=== PATIENT | male | born 1965 | race African-American/Black ===

== ENCOUNTER 2017-04-21 14:46 | Inpatient (IN) | payer MEDICAID ==
[~2017-04-21] VITALS: Ht 182.9 cm; Wt 110.9 kg
[~2017-04-21 14:46] MED LIST: AMLO10TA55 PO; METO50TA5 PO; WARF5TAB6 PO
[2017-04-21] MEDS ORDERED: FURO40 PO (15:04)
[2017-04-21] MEDS ORDERED: METF500T4 PO (15:04)
[2017-04-21] MEDS ORDERED: HYDR25TA PO (15:04)
[2017-04-21] MEDS ORDERED: CARV25 PO (15:04)
[2017-04-21 15:08] LABS: GLUCOSE,POINT OF CARE 159 MG/DL (70-110)
[2017-04-21] MEDS ORDERED: MECLIZINE HCL 25 MG TABLET PO ONE (15:30)
[2017-04-21] MEDS ORDERED: SODIUM CHLORIDE 0.9% 500 ML IV ONE (15:30)
[2017-04-21] MEDS: ACETAMINOPHEN 500 MG TABLET PO ONE ×2 (16:20→16:35)
[2017-04-21] MEDS: ONDANSETRON HCL 4 MG/2 ML VIAL IVP ONE ×2 (16:20→16:35)
[2017-04-21 16:44] LABS: BASOPHILS % (AUTO) 0.4 % (0.0-2.0); HEMATOCRIT 37.4 % (41-53); HEMOGLOBIN 12.6 g/dL (13.5-17.5); LYMPHOCYTES # (AUTO) 2.2 K/uL (1.0-4.8); LYMPHOCYTES % (AUTO) 46.3 % (22.0-44.0); MEAN CORPUSCULAR HEMOGLOBIN 30.9 pg (26.0-34.0); MEAN CORPUSCULAR HGB CONC 33.8 G/dL (31.0-37.0); MEAN CORPUSCULAR VOLUME 91 fL (80-100); MONOCYTES # (AUTO) 0.4 K/uL (0.1-1.0); NEUTROPHILS # (AUTO) 1.9 K/uL (1.8-7.7); NEUTROPHILS % (AUTO) 41.3 % (40.0-70.0); PLATELET COUNT (AUTO) 173 K/uL (150-450); RED BLOOD CELL COUNT(AUTO) 4.09 MIL/uL (4.50-5.90); RED CELL DISTRIBUTION WIDTH 14.8 % (11.5-14.5); WHITE BLOOD COUNT (AUTO) 4.7 K/uL (4.5-11.0)
[2017-04-21 17:01] LABS: INR 1.3 (0.9-1.1); PROTHROMBIN TIME 13.4 SEC (9.4-11.6)
[2017-04-21 17:02] LABS: CALCIUM, TOTAL 8.7 mg/dL (8.8-10.5); CREATININE 2.02 mg/dL (0.60-1.30); POTASSIUM 3.6 mmol/L (3.5-5.1)
[2017-04-21 17:09] LABS: BILIRUBIN,TOTAL 0.5 mg/dL (0.1-1.0); TOTAL PROTEIN, SERUM 7.5 g/dL (6.4-8.2)
[2017-04-21] MEDS ORDERED: 0.9% SODIUM CHLORIDE 10 ML SYRINGE IVP PRN (17:45)
[2017-04-21] MEDS ORDERED: ACETAMINOPHEN 325 MG TABLET PO PRN (17:45)
[2017-04-21] MEDS ORDERED: ONDANSETRON HCL 4 MG/2 ML VIAL IVP PRN (17:45)
[2017-04-21] MEDS ORDERED: WARFARIN SODIUM 5 MG TABLET PO SCH (20:15)
[2017-04-21 20:16] VITALS: BP 102/75
[2017-04-21] MEDS: WARFARIN SODIUM 5 MG TABLET PO SCH (20:30)
[2017-04-21 23:51] VITALS: BP 114/78
[2017-04-22] MEDS: METOPROLOL TARTRATE 50 MG TABLET PO SCH ×3 (00:35→20:41)
[2017-04-22 05:04] VITALS: BP 117/66
[2017-04-22 05:56] LABS: LYMPHOCYTES # (AUTO) 2.1 K/uL (1.0-4.8); NEUTROPHILS # (AUTO) 1.2 K/uL (1.8-7.7)
[2017-04-22 06:01] LABS: BASOPHILS % (AUTO) 0.6 % (0.0-2.0); EOSINOPHILS % (AUTO) 3.8 % (1.0-6.0); HEMATOCRIT 38.5 % (41-53); HEMOGLOBIN 13.2 g/dL (13.5-17.5); LYMPHOCYTES % (AUTO) 56.3 % (22.0-44.0); MEAN CORPUSCULAR HEMOGLOBIN 31.6 pg (26.0-34.0); MEAN CORPUSCULAR HGB CONC 34.3 G/dL (31.0-37.0); MEAN CORPUSCULAR VOLUME 92 fL (80-100); MONOCYTES # (AUTO) 0.3 K/uL (0.1-1.0); MONOCYTES % (AUTO) 8.5 % (2.0-9.0); NEUTROPHILS % (AUTO) 30.8 % (40.0-70.0); PLATELET COUNT (AUTO) 171 K/uL (150-450); RED BLOOD CELL COUNT(AUTO) 4.17 MIL/uL (4.50-5.90); RED CELL DISTRIBUTION WIDTH 15.1 % (11.5-14.5); WHITE BLOOD COUNT (AUTO) 3.8 K/uL (4.5-11.0)
[2017-04-22 06:11] LABS: INR 1.1 (0.9-1.1)
[2017-04-22 07:41] VITALS: BP 118/78
[2017-04-22 08:04] LABS: ALANINE AMINOTRANSFERASE 21 U/L (12-78); ALBUMIN 3.7 g/dL (3.4-5.0); ANION GAP 11 mmol/L (8-16); ASPARTATE AMINOTRANSFERASE 11 U/L (15-37); BILIRUBIN,TOTAL 0.4 mg/dL (0.1-1.0); CALCIUM, TOTAL 8.5 mg/dL (8.8-10.5); CARBON DIOXIDE 26 mmol/L (22-29); CHLORIDE 105 mmol/L (98-107); CREATININE 1.36 mg/dL (0.60-1.30); GLOMERULAR FILTR. RATE CALC > 60 mL/min (>60); POTASSIUM 3.4 mmol/L (3.5-5.1); SODIUM SERUM 142 mmol/L (136-145); TOTAL PROTEIN, SERUM 6.7 g/dL (6.4-8.2); UREA NITROGEN, BLOOD 17 mg/dL (7-18)
[2017-04-22] MEDS: CARVEDILOL 25 MG TABLET PO SCH (09:12)
[2017-04-22] MEDS: MetFORMIN HCL 500 MG TABLET PO SCH ×2 (09:12→18:24)
[2017-04-22] MEDS: AmLODIPine BESYLATE 10 MG TABLET PO SCH (09:12)
[2017-04-22] MEDS: FUROSEMIDE 40 MG TABLET PO SCH (09:12)
[2017-04-22] MEDS: HYDROCHLOROTHIAZIDE 25 MG TABLET PO SCH (09:12)
[2017-04-22 11:38] VITALS: BP 121/67
[2017-04-22] MEDS ORDERED: MAGNESIUM SULFATE 3 GM in DEXTROSE 5%-WATER 100 ML IV ONE (14:30)
[2017-04-22] MEDS ORDERED: POTASSIUM CHL 10 MEQ/WATER 50 ML IV PRN (14:30)
[2017-04-22] MEDS: POTASSIUM CHLORIDE 20 MEQ ER TABLET PO PRN ×2 (14:53→21:01)
[2017-04-22] MEDS: HYDROCODONE/ACETAMINOPHEN 5-325 MG TABLET PO PRN (14:54)
[2017-04-22 15:34] VITALS: BP 112/73
[2017-04-22] MEDS ORDERED: SODIUM CHLORIDE 0.9% 250 ML IV ONE (15:44)
[2017-04-22] MEDS: WARFARIN SODIUM 5 MG TABLET PO SCH (16:00)
[2017-04-22 19:45] VITALS: BP 127/67
[2017-04-23 00:10] VITALS: BP 120/75
[2017-04-23 04:44] VITALS: BP 112/66
[2017-04-23 06:03] LABS: BASOPHILS % (AUTO) 0.4 % (0.0-2.0); EOSINOPHILS % (AUTO) 3.5 % (1.0-6.0); HEMATOCRIT 40.6 % (41-53); HEMOGLOBIN 14.2 g/dL (13.5-17.5); LYMPHOCYTES # (AUTO) 2.3 K/uL (1.0-4.8); LYMPHOCYTES % (AUTO) 45.9 % (22.0-44.0); MEAN CORPUSCULAR HEMOGLOBIN 31.6 pg (26.0-34.0); MEAN CORPUSCULAR VOLUME 90 fL (80-100); MONOCYTES # (AUTO) 0.6 K/uL (0.1-1.0); MONOCYTES % (AUTO) 11.5 % (2.0-9.0); NEUTROPHILS # (AUTO) 1.9 K/uL (1.8-7.7); NEUTROPHILS % (AUTO) 38.7 % (40.0-70.0); PLATELET COUNT (AUTO) 194 K/uL (150-450); RED CELL DISTRIBUTION WIDTH 14.4 % (11.5-14.5); WHITE BLOOD COUNT (AUTO) 4.9 K/uL (4.5-11.0)
[2017-04-23 06:12] LABS: INR 1.1 (0.9-1.1); PROTHROMBIN TIME 11.1 SEC (9.4-11.6)
[2017-04-23 06:32] LABS: CALCIUM, TOTAL 9.1 mg/dL (8.8-10.5); CHOL/HDL RATIO 5.5 (4.2-7.3); CREATININE 1.55 mg/dL (0.60-1.30); POTASSIUM 3.4 mmol/L (3.5-5.1)
[2017-04-23 06:46] LABS: HEMOGLOBIN A1C 7.1 % (4.5-6.2)
[2017-04-23 07:21] VITALS: BP 135/85
[2017-04-23 08:00] LABS: MAGNESIUM 1.7 mg/dL (1.80-2.40)
[2017-04-23] MEDS: HYDROCHLOROTHIAZIDE 25 MG TABLET PO SCH (08:33)
[2017-04-23] MEDS: HYDROCODONE/ACETAMINOPHEN 5-325 MG TABLET PO PRN (08:33)
[2017-04-23] MEDS: CARVEDILOL 25 MG TABLET PO SCH (08:34)
[2017-04-23] MEDS: FUROSEMIDE 40 MG TABLET PO SCH (08:34)
[2017-04-23] MEDS: METOPROLOL TARTRATE 50 MG TABLET PO SCH ×2 (08:34→20:34)
[2017-04-23] MEDS: MetFORMIN HCL 500 MG TABLET PO SCH ×2 (08:34→18:03)
[2017-04-23] MEDS: AmLODIPine BESYLATE 10 MG TABLET PO SCH (08:34)
[2017-04-23] MEDS: POTASSIUM CHLORIDE 20 MEQ ER TABLET PO PRN ×3 (08:34→21:28)
[2017-04-23 11:22] VITALS: BP 111/69
[2017-04-23] MEDS ORDERED: POTASSIUM CHLORIDE 20 MEQ ER TABLET PO PRN (14:15)
[2017-04-23] MEDS ORDERED: MAGNESIUM SULFATE 2 GM in DEXTROSE 5%-WATER 50 ML IV PRN (14:15)
[2017-04-23] MEDS ORDERED: MAGNESIUM SULFATE 4 GM/WATER 100 ML IV PRN (14:15)
[2017-04-23] MEDS: MAGNESIUM OXIDE 400 MG TABLET PO PRN ×3 (14:18→23:14)
[2017-04-23 15:33] VITALS: BP 112/40
[2017-04-23] MEDS: WARFARIN SODIUM 5 MG TABLET PO SCH (16:01)
[2017-04-23 19:39] VITALS: BP 125/74
[2017-04-24 00:19] VITALS: BP 109/71
[2017-04-24 05:17] VITALS: BP 103/51
[2017-04-24 06:27] LABS: INR 1.2 (0.9-1.1); PROTHROMBIN TIME 12.2 SEC (9.4-11.6)
[2017-04-24 07:30] VITALS: BP 102/71
[2017-04-24] MEDS: MetFORMIN HCL 500 MG TABLET PO SCH (08:29)
[2017-04-24] MEDS: FUROSEMIDE 40 MG TABLET PO SCH (08:29)
[2017-04-24] MEDS: AmLODIPine BESYLATE 10 MG TABLET PO SCH (08:30)
[2017-04-24] MEDS: METOPROLOL TARTRATE 50 MG TABLET PO SCH (09:00)
[2017-04-24] MEDS: MAGNESIUM OXIDE 400 MG TABLET PO PRN (09:04)
[2017-04-24 12:01] VITALS: BP 120/84
[2017-04-24] MEDS: CARVEDILOL 25 MG TABLET PO SCH (12:15)
[2017-04-24] MEDS: HYDROCHLOROTHIAZIDE 25 MG TABLET PO SCH (12:15)
[2017-04-24 15:52] VITALS: BP 119/77
[2017-04-24] MEDS ORDERED: KDUR10 PO (16:29)
== END 2017-04-24 17:00 | disposition home or self-care (01) | DRG 48 ==
LOC: EMS 14:47 → 5S 18:27
PROVIDERS: ADMIT Family Medicine; ATTEND Family Medicine
DX: G90.8 Other disorders of autonomic nervous system (principal); N17.0 Acute kidney failure with tubular necrosis; I26.99 Other pulmonary embolism without acute cor pulmonale; I50.9 Heart failure, unspecified; I11.0 Hypertensive heart disease with heart failure; R55 Syncope and collapse; I48.2 Chronic atrial fibrillation; J44.9 Chronic obstructive pulmonary disease, unspecified; F17.210 Nicotine dependence, cigarettes, uncomplicated; F12.90 Cannabis use, unspecified, uncomplicated; F19.10 Other psychoactive substance abuse, uncomplicated; E86.0 Dehydration; E11.9 Type 2 diabetes mellitus without complications; Z79.01 Long term (current) use of anticoagulants; Z79.899 Other long term (current) drug therapy; Z88.0 Allergy status to penicillin; Z79.84 Long term (current) use of oral hypoglycemic drugs; Z86.711 Personal history of pulmonary embolism; Z86.79 Personal history of other diseases of the circulatory system
CPT/HCPCS: 70450; 80307; 82962; 83036; 83735; 84132; 87081; 93005; 93306; 93880; 96360; 99285; J2405; J3475; J7040; J7050; J7060